=== PATIENT | male | born 1965 | race Caucasian/White ===

== ENCOUNTER 2019-01-22 07:23 | Day surgery (SDC) | payer OTHER ==
[2019-01-21 15:38] VITALS: BMI 32.8
[2019-01-22 08:58] VITALS: TEMP 97.5
[2019-01-22 13:16] VITALS: BP 104/53; PULSE 67
--- NOTE | 2019-01-23 11:34 | PATH ---
Surgical Pathology Report Patient Name: RADHA GARCIA [facility]. Rec. #: [id number] /Age/Gender: 1965 (Age: 53) / M Account: [id number] Location: [facility]-ENDOSCOPY Taken: 01/22/2019 Received: 01/22/2019 Reported: 01/23/2019 Physicians: Mitesh Philip D.O. Specimen(s) Received RECTOSIGMOID POLYP Clinical History Constipation Postoperative diagnosis: Colon polyp Final Diagnosis RECTOSIGMOID COLON, POLYP, POLYPECTOMY: HYPERPLASTIC POLYP. Electronically Signed Yoli Miranda M.D. Gross Description Received in formalin, labeled "biopsy polyp rectosigmoid" is a lawrence, irregular portion of soft tissue measuring 0.3 cm. in greatest dimension. The specimen is submitted in toto in one cassette. /01/22/201901/22/2019
== END 2019-01-22 10:04 | disposition home or self-care (01) ==
LOC: JASU-ENDO 07:23
PROVIDERS: ATTEND Internal Medicine Gastroenterology
PROC: 0DBN8ZX Excision of Sigmoid Colon, Via Natural or Artificial Opening Endoscopic, Diagnostic (ICD-10-PCS; principal; 2019-01-22 08:00)
DX: Z12.11 Encounter for screening for malignant neoplasm of colon (principal); D12.7 Benign neoplasm of rectosigmoid junction; K64.8 Other hemorrhoids; Z80.0 Family history of malignant neoplasm of digestive organs; I10 Essential (primary) hypertension; E11.9 Type 2 diabetes mellitus without complications
CPT/HCPCS: 82962; 88305-TC